=== PATIENT | male | born 1950 | race Caucasian/White ===

== ENCOUNTER 2022-09-20 13:01 | Inpatient (IN) ==
--- NOTE | 2022-09-20 15:06 | DR.UPM ---
HPI Time Seen Time Seen by Provider: 09/20/22 15:05 PCP Primary Care Physician: Walter Ferreira HPI Comment HPI Comment: Patient is 71yr old male in er with fever, body aches, headache and nausea times 3 days. on treatment for Uti for 3 days. not getting better. Denies dysuria or vomiting. PCP wants patient evaluated for covid 19 infection. Patient is said to have AMS. Complaint Chief Complaint Doctors Comments: Fever, body aches, headaches and nausea times 3 days. On medication for UTI. Chief Complaint:: Pt states that thursday09/17/22 he was given an abx for a Uti but since then pt has had nausea, headache, fever, all over body aches. Pt states that Pili at Dr. Ferreria's office told him that he might have covid and that he needed to come to the ER Self Treatment fo Chief Complaint: prescribed abx COVID-19 Coronavirus risk:travel/contact w/high risk person: No Has patient experienced Coronavirus symptoms: Yes Coronavirus symptoms experienced: Fever Reviewed Nurses Notes Reviewed: Yes Source History Provided: Patient and Significant Other Mode of Arrival Mode of Arrival: Ambulatory Timing Onset of Chief Complaint: 09/17/22 PMH PMH Past Medical History: Yes Past Medical History: Diabetes, Gout, Hypertension and Hypothyroidism Past Medical History Comment: history of diverticulitis history of hernia only has 1 kidney Past Surgical History: Yes Family History History of Family Medical Conditions: Yes Family Medical History: Hypertension Social History Does any household member use tobacco: No Alcohol Use: None Do you use any recreational Drugs:: No Lives With: Spouse Lives Where: Home Travel Risk Coronavirus risk:travel/contact w/high risk person: No Has patient experienced Coronavirus symptoms: Yes Coronavirus symptoms experienced: Fever Infectious screening In the last 2 months have you had wt loss of >10#?: NO Have you had fever, night sweats or hemotysis?: No Have you traveled outside the country in the last 6 months?: No Isolation: Respiratory ROS Review of Systems Constitutional: Fever, Weakness and Fatigue Eyes: No Symptoms Reported; negative Blurred Vision ENTM: No Symptoms Reported; negative Nose Discharge or Nose Congestion Respiratoy: No Symptoms Reported; negative Short of Breath Cardiovascular: No Symptoms Reported; negative Chest Pain Gastrointestinal/Abdominal: Nausea; negative Diarrhea or Vomiting Genitourinary: No Symptoms Reported; negative Dysuria Neurological: Headache and Weakness; negative Dizziness Musculoskeletal: Muscle Pain; negative Back Pain Integumentary: No Symptoms Reported; negative Rash or Juandice Hematologic/Lymphatic: No Symptoms Reported and Easy Bruising Endocrine: No Symptoms Reported; negative Increased Thirst or Increased Urine Psychiatric: No Symptoms Reported and See HPI All Other Systems: Reviewed and Negative PE Vital Signs Vitals: Vital Signs Respiratory Rate 20 Respiratory Rate 20 Respiratory Rate 19 General Limitations: No Limitations General Appearance: Alert and In No Apparent Distress Head Head Exam: Normal Inspection and Atraumatic Eyes Eye exam: Normal Appearance and PERRL; negative Scleral Icterus or Conjunctival Injection ENT ENT Exam: Normal Exam, Normal Oropharynx, Normal External Ear Exam and TM's Normal Bilaterally Neck Neck Exam: Normal Inspection and Trachea Midline; negative Tenderness Chest Chest Inspection: Normal Inspection and Symmetric Chest Wall Rise; negative Tenderness Respiratory Respiratory Exam: Normal Lung Sounds Bilat; negative Accessory Muscle Use, Chest Wall Tenderness or Respiratory Distress Cardiovascular Cardiovascular Exam: Regular Rate, Normal Rhythm and Normal Heart Sounds; negative Systolic Murmur or Diastolic Murmur Abdominal Exam Abdominal Exam: Normal Inspection, Normal Bowel Sounds and Soft; negative Tenderness Rectal Rectal Exam: Deferred Genitourinary Exam: Male: Deferred Extremities Extremities Exam: Normal Inspection and Normal Capillary Refill Back Back Exam: Normal Inspection; negative (R) CVA Tenderness or (L) CVA Tenderness Neurologic Neurological Exam: Alert; negative Oriented X3 (SLIGHTLY CONFUSED.) or Motor Sensory Deficit Psychiatric Psychiatric Exam: Normal Affect and Normal Mood Skin Skin Exam: Intact MDM Differential Diagnosis Differential Diagnosis: Urolithiasis, UTI and Other (Viral syndrome, covid 19 virus infection, influenza.) COURSE Treatment Treatment: See orders done while patient was in er. labs discussed with patient. Admitted to hospital for further management. Consultation Consultation Comments: Discussed patient with Dr. Pradhan. he is in er evaluating patient. he will admit patient. Education/Counseling Education/Counseling: Patient Educated On: Diagnosis and Needs for Follow Up ROR Labs Reviewed Laboratory Results Reviewed?: Yes 09/26/22 05:16 09/26/22 05:16 Laboratory: 09/20/22 15:55 Urine,Clean Catch Urine Culture - Final Escherichia Coli WBC 5.7 X10^3/uL (3.6-10.0) 09/20/22 15:25 RBC 4.72 X10^6/uL (4.7-6.0) 09/20/22 15:25 Hgb 13.8 g/dL (13.5-18.0) 09/20/22 15:25 Hct 41.4 % (42.0-54.0) L 09/20/22 15:25 MCV 87.7 fL (80.0-100.0) 09/20/22 15:25 MCH 29.3 pg (27.0-34.0) 09/20/22 15:25 MCHC 33.4 g/dL (33.0-35.0) 09/20/22 15:25 RDW 13.9 % (11.6-16.5) 09/20/22 15:25 Plt Count 158 X10^3/uL (150.0-450.0) 09/20/22 15:25 Plt Count Comment Adequate (ADEQUATE) 09/20/22 15:25 MPV 8.9 fL (7.4-11.0) 09/20/22 15:25 Neut % (Auto) 92.4 % (42.0-75.0) H 09/20/22 15:25 Lymph % (Auto) 2.1 % (21.0-51.0) L 09/20/22 15:25 [place] % (Auto) 4.6 % (0.0-13.0) 09/20/22 15:25 Eos % (Auto) 0.3 % (0.9-2.9) L 09/20/22 15:25 Baso % (Auto) 0.6 % (0.2-1.0) 09/20/22 15:25 Neut # (Auto) 5.2 x10^3/uL (2.2-4.8) H 09/20/22 15:25 Lymph # (Auto) 0.1 X10^3/uL (1.3-2.9) L 09/20/22 15:25 [place] # (Auto) 0.3 x10^3/uL (0.3-0.8) 09/20/22 15:25 Eos # (Auto) 0.0 x10^3/uL (0.0-0.2) 09/20/22 15:25 Baso # (Auto) 0.0 X10^3/uL (0.0-0.1) 09/20/22 15:25 Absolute Nucleated RBC 0.2 /100WBC 09/20/22 15:25 Total Counted 100 09/20/22 15:25 Neutrophils % (Manual) 93 % (39-76) H 09/20/22 15:25 Lymphocytes % (Manual) 3 % (13-43) L 09/20/22 15:25 Monocytes % (Manual) 4 % (4-9) 09/20/22 15:25 Plt Morphology Comment Normal (NORMAL) 09/20/22 15:25 RBC Morphology Normal (NORMAL) 09/20/22 15:25 Sodium 136 mmol/L (136-145) 09/20/22 15:25 Corrected Sodium 137 mmol/L (136-145) 09/20/22 15:25 Potassium 3.3 mmol/L (3.5-5.1) L 09/20/22 15:25 Chloride 98 mmol/L (98-107) 09/20/22 15:25 Carbon Dioxide 32.1 mmol/L (21-32) H 09/20/22 15:25 BUN 15 mg/dL (7-18) 09/20/22 15:25 Creatinine 1.41 mg/dL (0.70-1.30) H 09/20/22 15:25 Est GFR (MDRD) Af Amer > 60 (>60) 09/20/22 15:25 Est GFR (MDRD) Non-Af 53 (>60) L 09/20/22 15:25 Glucose 136 mg/dL (65-99) H 09/20/22 15:25 Calcium 8.2 mg/dL (8.5-10.1) L 09/20/22 15:25 Corrected Calcium 9.0 mg/dL (8.5-10.1) 09/20/22 15:25 Magnesium 1.7 mg/dL (2.0-2.9) L 09/20/22 15:25 Total Bilirubin 0.40 mg/dL (0.2-1.0) 09/20/22 15:25 AST 25 Units/L (15-37) 09/20/22 15:25 ALT 22 Units/L (12-78) 09/20/22 15:25 Alkaline Phosphatase 51 Units/L (46-116) 09/20/22 15:25 Creatine Kinase 349 Units/L (39-308) H 09/20/22 15:25 Troponin I High Sens 31.0 ng/L (4.0-60.0) 09/20/22 15:25 B-Natriuretic Peptide 95.2 pg/mL (0-79) H 09/20/22 15:25 Total Protein 6.5 g/dL (6.4-8.2) 09/20/22 15:25 Albumin 3.0 g/dL (3.4-5.0) L 09/20/22 15:25 Globulin 3.5 g/dL (2.5-4.5) 09/20/22 15:25 Albumin/Globulin Ratio 0.9 Ratio (1.1-2.1) L 09/20/22 15:25 Specimen Type Clean catch urine 09/20/22 15:55 Urine Color Yellow (YELLOW) 09/20/22 15:55 Urine Appearance Cloudy (CLEAR) 09/20/22 15:55 Urine pH 6.0 (5.0 - 8.0) 09/20/22 15:55 Ur Specific [place] 1.020 (1.000-1.030) 09/20/22 15:55 Urine Protein 2+ (NEGATIVE) 09/20/22 15:55 Urine Glucose (UA) Negative (NEGATIVE) 09/20/22 15:55 Urine Ketones Negative (NEGATIVE) 09/20/22 15:55 Urine Blood 5+ (NEGATIVE) 09/20/22 15:55 Urine Nitrite Negative (NEGATIVE) 09/20/22 15:55 Urine Bilirubin Negative (NEGATIVE) 09/20/22 15:55 Urine Urobilinogen 1+ (NORMAL) 09/20/22 15:55 Ur Leukocyte Esterase 2+ (NEGATIVE) 09/20/22 15:55 Urine RBC Tntc /HPF (0-3) A 09/20/22 15:55 Urine WBC 30-50 /HPF (0-5) A 09/20/22 15:55 Ur Squamous Epith Cells Rare /HPF (NEGATIVE) 09/20/22 15:55 Urine Bacteria Trace /HPF (NEGATIVE) 09/20/22 15:55 Ur Culture Indicated? Yes/culture set up 09/20/22 15:55 SARS-CoV-2 (PCR) Negative (NEGATIVE) 09/20/22 21:13 Influenza Type A (PCR) Negative (NEGATIVE) 09/20/22 21:13 Influenza Type B (PCR) Negative (NEGATIVE) 09/20/22 21:13 RSV (PCR) Negative (NEGATIVE) 09/20/22 21:13 Opioid Opioid Risk Tool Age (Derrick box if 16-45): No Total: 0 Total Score Risk Category: Low Risk Copyright: [facility] predicting aberrant behaviors Discharge Plan Diagnosis Discharge Problem: Acute pyelonephritis, Dehydration, Generalized weakness Discharge Plan Patient Disposition: 01 HOME, SELF-CARE Condition: Stable
[2022-09-20] MEDS ORDERED: MORPHINE SULFATE INJ 2 MG INJ IVP ONE ×2 (15:24→19:25)
[2022-09-20] MEDS ORDERED: ZOFRAN INJ 4 MG VIAL ONE (15:30)
[2022-09-20] MEDS ORDERED: MORPHINE SULFATE INJ 2 MG INJ ONE ×2 (15:30→19:32)
[2022-09-20] MEDS ORDERED: NS 1,000 ML IV 1,000 ML ONE ×2 (15:30→21:04)
[2022-09-20] MEDS ORDERED: PEPCID 20 MG VIAL ONE (15:31)
[2022-09-20] MEDS: PEPCID 20 MG VIAL 20 MG in NS 50 ML IV 50 ML IV ONE ×2 (15:33→15:40)
[2022-09-20] MEDS: NS 1,000 ML IV 1,000 ML IV SCH ×2 (15:33→21:15)
[2022-09-20] MEDS: ZOFRAN INJ 4 MG VIAL IVP ONE ×2 (15:33→15:39)
[2022-09-20 15:38] LABS: BASOPHILS % (AUTO) 0.6 % (0.2-1.0); EOSINOPHILS % (AUTO) 0.3 % (0.9-2.9); HEMATOCRIT 41.4 % (42.0-54.0); HEMOGLOBIN 13.8 g/dL (13.5-18.0); LYMPHOCYTES # (AUTO) 0.1 X10^3/uL (1.3-2.9); LYMPHOCYTES % (AUTO) 2.1 % (21.0-51.0); MEAN CORPUSCULAR HEMOGLOBIN 29.3 pg (27.0-34.0); MEAN CORPUSCULAR HGB CONC 33.4 g/dL (33.0-35.0); MEAN CORPUSCULAR VOLUME 87.7 fL (80.0-100.0); MEAN PLATELET VOLUME 8.9 fL (7.4-11.0); MONOCYTES # (AUTO) 0.3 x10^3/uL (0.3-0.8); MONOCYTES % (AUTO) 4.6 % (0.0-13.0); NEUTROPHILS # (AUTO) 5.2 x10^3/uL (2.2-4.8); NEUTROPHILS % (AUTO) 92.4 % (42.0-75.0); PLATELET COUNT 158 X10^3/uL (150.0-450.0); RED BLOOD COUNT 4.72 X10^6/uL (4.7-6.0); RED CELL DISTRIBUTION WIDTH 13.9 % (11.6-16.5); WHITE BLOOD COUNT 5.7 X10^3/uL (3.6-10.0)
[2022-09-20 15:52] LABS: ALANINE AMINOTRANSFERASE 22 Units/L (12-78); ALKALINE PHOSPHATASE 51 Units/L (46-116); ASPARTATE AMINO TRANSFERASE 25 Units/L (15-37); BLOOD UREA NITROGEN 15 mg/dL (7-18); CALCIUM 8.2 mg/dL (8.5-10.1); CARBON DIOXIDE 32.1 mmol/L (21-32); CHLORIDE 98 mmol/L (98-107); COR NA(FOR HYPERGLY) 137 mmol/L (136-145); CREATINE KINASE 349 Units/L (39-308); CREATININE 1.41 mg/dL (0.70-1.30); GLUCOSE 136 mg/dL (65-99); POTASSIUM 3.3 mmol/L (3.5-5.1); SODIUM 136 mmol/L (136-145); TOTAL PROTEIN 6.5 g/dL (6.4-8.2); eGFR NON BLACK RACES 53 (>60)
[2022-09-20 16:01] LABS: PLATELET MORPHOLOGY COMMENT NORMAL (NORMAL)
[2022-09-20 16:27] LABS: BILIRUBIN,URINE NEGATIVE (NEGATIVE); BLOOD/HEMOGLOBIN,URINE 5+ (NEGATIVE); GLUCOSE, URINE NEGATIVE (NEGATIVE); KETONES,URINE NEGATIVE (NEGATIVE); LEUKOCYTE ESTERASE ,URINE 2+ (NEGATIVE); NITRITES,URINE NEGATIVE (NEGATIVE); PROTEIN,URINE 2+ (NEGATIVE); UROBILINOGEN,URINE 1+ (NORMAL)
[2022-09-20 16:41] LABS: APPEARANCE,URINE CLOUDY (CLEAR); BACTERIA,URINE TRACE /HPF (NEGATIVE); COLOR,URINE YELLOW (YELLOW); RBC,URINE TNTC /HPF (0-3); SQUAMOUS EPITHELIAL CELL,UR RARE /HPF (NEGATIVE)
--- NOTE | 2022-09-20 16:51 | CT ---
HISTORYhematuria, fever, chills, possible stone.brpt states he only has one kidneyRenal colic and flank pain. Concern for renal stone.Exam: Non-contrast CT examination of the abdomen & pelvis.Technique: Multiple CT images of the abdomen and pelvis were obtained from the lung bases to the pubic symphysis without the IV administration of contrast. Of note, this CT exam was optimized for renal stone disease and some parenchymal organ abnormalities and vascular abnormalities/injuries cannot be excluded on the basis of this CT exam.Findings:The lung bases are clear. The heart is normal in size without a pericardial effusion. The liver, gallbladder, pancreas, spleen, adrenal glands, and gallbladder are unremarkable in appearance. There is diffuse left-sided perinephric stranding observed with mild left-sided hydroureter which can be seen with a recently passed renal stone or urinary tract infection/pyelonephritis. Please correlate medically and with urinalysis, as this is not definitive on this noncontrast study. No free fluid or free air is seen. There is descending colonic diverticulosis without findings of acute diverticulitis. The bladder and remaining pelvic organs are unremarkable appearance. No other acute abdominopelvic process is seen. Degenerative disc disease and facet joint DJD is seen throughout the lumbar spine with grade 1 anterolisthesis of L4 on L5 secondary to bilateral pars defects at this level with a broad-based posterior disc protrusion which combines with facet joint DJD to create severe foraminal narrowing and probable neural compression at this level. Multilevel degenerative disc disease and spondylosis as well as facet joint DJD seen throughout the remainder of the spine as well.Impression:Diffuse left-sided perinephric stranding observed with mild left-sided hydroureter which can be seen with a recently passed renal stone or urinary tract infection/pyelonephritis. Please correlate medically and with urinalysis, as this is not definitive on this noncontrast study.No free fluid or free air is seen. There is descending colonic diverticulosis without findings of acute diverticulitis.Degenerative disc disease and facet joint DJD is seen throughout the lumbar spine with grade 1 anterolisthesis of L4 on L5 secondary to bilateral pars defects at this level with a broad-based posterior disc protrusion which combines with facet joint DJD to create severe foraminal narrowing and probable neural compression at this level. Multilevel degenerative disc disease and spondylosis as well as facet joint DJD seen throughout the remainder of the spine as well. This might be best followed up with outpatient lumbar spine MR imaging, as medically needed.Electronically signed by: MOY LLAMAS III (Sep 20, 2022 16:49:20)
[2022-09-20] MEDS ORDERED: ROCEPHIN VIAL 1 GRAM 1 G in NS 100 ML IV 100 ML IV ONE (17:50)
[2022-09-20] MEDS ORDERED: ROCEPHIN VIAL 2 GRAMS ONE (17:57)
[2022-09-20] MEDS ORDERED: AMPICILLIN VIAL 1 GRAM 1 G in NS 100 ML IV 100 ML IV ONE (21:10)
[2022-09-20] MEDS ORDERED: TYLENOL 325 MG TAB PO ONE ×2 (21:17→21:40)
[2022-09-20] MEDS ORDERED: AMPICILLIN VIAL 1 GRAM ONE (21:20)
[2022-09-20] MEDS ORDERED: NS 100 ML IV 100 ML ONE (21:20)
--- NOTE | 2022-09-20 21:42 | CT ---
HISTORYINTERMITTENT HEADACHE FOR 3 DAYSSTUDYBRAIN W/O CONCOMPARISONNoneTECHNIQUEMult iple axial images of the head without contrast. Dose reduction techniques including Automated Exposure Control (AEC) and adjustment of mA and kV were utilized.FINDINGSBulky, calcified atherosclerotic calcifications in the posterior circulation and the carotid siphons. Benign dural calcifications. No hemorrhage or extra-axial collection. Microvascular ischemic changes in the bilateral white matter. Right maxillary sinus polyp versus mucous retention cysts. Scattered opacities in the ethmoid air cells. No skull lesion.IMPRESSIONChronic brain findings.Paranasal sinusitis.Electronically signed by: Kenneth Rivas (Sep 20, 2022 21:41:18)
[2022-09-20] MEDS ORDERED: CONSULT PHARMACY - POTASSIUM & MAGNESIUM XX SCH (23:00)
[2022-09-20] MEDS: K-DUR TAB 20 MEQ PO SCH (23:12)
[2022-09-20] MEDS: MAG-OX TAB PO SCH (23:13)
[2022-09-20 23:32] VITALS: BMI 37.4
[2022-09-21] MEDS: NS 1,000 ML IV 1,000 ML IV SCH ×2 (00:01→08:47)
[2022-09-21] MEDS: MAG-OX TAB PO SCH ×3 (00:15→20:35)
[2022-09-21] MEDS: K-DUR TAB 20 MEQ PO SCH (00:15)
[2022-09-21] MEDS: NORCO 5/325 MG TAB PO PRN ×4 (02:35→22:06)
[2022-09-21] MEDS ORDERED: CONSULT PHARMACY - POTASSIUM & MAGNESIUM XX SCH (08:00)
[2022-09-21] MEDS: NS + KCL 20 MEQ/L 1,000 ML IV SCH ×2 (09:40→18:17)
[2022-09-21 10:04] LABS: BASOPHILS % (AUTO) 0.7 % (0.2-1.0); HEMATOCRIT 39.9 % (42.0-54.0); HEMOGLOBIN 13.4 g/dL (13.5-18.0); LYMPHOCYTES # (AUTO) 0.2 X10^3/uL (1.3-2.9); LYMPHOCYTES % (AUTO) 5.7 % (21.0-51.0); MEAN CORPUSCULAR HEMOGLOBIN 29.7 pg (27.0-34.0); MEAN CORPUSCULAR HGB CONC 33.7 g/dL (33.0-35.0); MONOCYTES # (AUTO) 0.6 x10^3/uL (0.3-0.8); MONOCYTES % (AUTO) 14.9 % (0.0-13.0); NEUTROPHILS % (AUTO) 77.7 % (42.0-75.0); PLATELET COUNT 144 X10^3/uL (150.0-450.0); RED BLOOD COUNT 4.53 X10^6/uL (4.7-6.0); RED CELL DISTRIBUTION WIDTH 14.1 % (11.6-16.5); WHITE BLOOD COUNT 3.9 X10^3/uL (3.6-10.0)
[2022-09-21 10:15] LABS: ALANINE AMINOTRANSFERASE 22 Units/L (12-78); ALBUMIN 2.5 g/dL (3.4-5.0); ALKALINE PHOSPHATASE 49 Units/L (46-116); ASPARTATE AMINO TRANSFERASE 34 Units/L (15-37); BLOOD UREA NITROGEN 11 mg/dL (7-18); CALCIUM 7.6 mg/dL (8.5-10.1); CHLORIDE 102 mmol/L (98-107); COR CA(FOR HYPOALB) 8.8 mg/dL (8.5-10.1); COR NA(FOR HYPERGLY) 139 mmol/L (136-145); CREATININE 1.21 mg/dL (0.70-1.30); GLUCOSE 140 mg/dL (65-99); MAGNESIUM 1.7 mg/dL (2.0-2.9); POTASSIUM 3.6 mmol/L (3.5-5.1); SODIUM 138 mmol/L (136-145); TOTAL PROTEIN 5.8 g/dL (6.4-8.2); eGFR NON BLACK RACES > 60 (>60)
[2022-09-21 10:40] LABS: PLATELET MORPHOLOGY COMMENT NORMAL (NORMAL)
[2022-09-21] MEDS ORDERED: AMPICILLIN VIAL 1 GRAM ONE (13:58)
[2022-09-21] MEDS ORDERED: ROCEPHIN VIAL 1 GRAM ONE (13:58)
[2022-09-21] MEDS ORDERED: NS 100 ML IV 200 ML ONE (13:59)
[2022-09-21] MEDS ORDERED: NS 100 ML IV 100 ML ONE (14:01)
[2022-09-21] MEDS: ROCEPHIN VIAL 1 GRAM 1 G in NS 100 ML IV 100 ML IV SCH (14:05)
[2022-09-21] MEDS: AMPICILLIN VIAL 1 GRAM 1 G in NS 100 ML IV 100 ML IV SCH ×3 (14:05→20:36)
[2022-09-21] MEDS: RHINOCORT ALLERGY NASAL SPRAY ENOSTRIL SCH (14:48)
[2022-09-21] MEDS: REQUIP PO SCH ×2 (14:48→20:34)
[2022-09-21] MEDS: LOPRESSOR TAB 50 MG PO SCH (22:06)
[2022-09-21] MEDS: ZESTRIL TAB 10 MG PO SCH (22:06)
[2022-09-21] MEDS: NYSTATIN OINT TOP SCH (22:11)
[2022-09-22] MEDS: NS + KCL 20 MEQ/L 1,000 ML IV SCH ×3 (01:50→23:57)
[2022-09-22] MEDS: NORCO 5/325 MG TAB PO PRN ×4 (03:28→22:23)
[2022-09-22] MEDS: AMPICILLIN VIAL 1 GRAM 1 G in NS 100 ML IV 100 ML IV SCH ×5 (03:29→20:51)
[2022-09-22 06:26] LABS: ALANINE AMINOTRANSFERASE 37 Units/L (12-78); ALBUMIN 2.7 g/dL (3.4-5.0); ALKALINE PHOSPHATASE 54 Units/L (46-116); ASPARTATE AMINO TRANSFERASE 45 Units/L (15-37); BLOOD UREA NITROGEN 11 mg/dL (7-18); CALCIUM 7.8 mg/dL (8.5-10.1); CARBON DIOXIDE 25.7 mmol/L (21-32); CHLORIDE 103 mmol/L (98-107); COR CA(FOR HYPOALB) 8.8 mg/dL (8.5-10.1); CREATININE 0.97 mg/dL (0.70-1.30); GLUCOSE 102 mg/dL (65-99); SODIUM 138 mmol/L (136-145); eGFR NON BLACK RACES > 60 (>60)
[2022-09-22 06:44] LABS: BASOPHILS % (AUTO) 0.9 % (0.2-1.0); EOSINOPHILS # (AUTO) 0.1 x10^3/uL (0.0-0.2); EOSINOPHILS % (AUTO) 3.6 % (0.9-2.9); HEMOGLOBIN 12.9 g/dL (13.5-18.0); LYMPHOCYTES # (AUTO) 0.8 X10^3/uL (1.3-2.9); LYMPHOCYTES % (AUTO) 19.1 % (21.0-51.0); MEAN CORPUSCULAR HEMOGLOBIN 29.6 pg (27.0-34.0); MEAN CORPUSCULAR HGB CONC 33.9 g/dL (33.0-35.0); MEAN CORPUSCULAR VOLUME 87.3 fL (80.0-100.0); MEAN PLATELET VOLUME 9.3 fL (7.4-11.0); MONOCYTES # (AUTO) 0.7 x10^3/uL (0.3-0.8); MONOCYTES % (AUTO) 16.9 % (0.0-13.0); NEUTROPHILS # (AUTO) 2.4 x10^3/uL (2.2-4.8); NEUTROPHILS % (AUTO) 59.5 % (42.0-75.0); PLATELET COUNT 151 X10^3/uL (150.0-450.0); RED BLOOD COUNT 4.36 X10^6/uL (4.7-6.0); RED CELL DISTRIBUTION WIDTH 14.1 % (11.6-16.5); WHITE BLOOD COUNT 4.1 X10^3/uL (3.6-10.0)
[2022-09-22 07:09] LABS: BAND NEUTROPHILS % 15 % (0-10); PLATELET MORPHOLOGY COMMENT NORMAL (NORMAL)
[2022-09-22] MEDS: MAG-OX TAB PO SCH ×2 (09:12→20:51)
[2022-09-22] MEDS: REQUIP PO SCH ×2 (09:12→20:52)
[2022-09-22] MEDS: LOPRESSOR TAB 50 MG PO SCH ×2 (09:13→20:52)
[2022-09-22] MEDS: ZESTRIL TAB 10 MG PO SCH (09:13)
[2022-09-22] MEDS: ROCEPHIN VIAL 1 GRAM 1 G in NS 100 ML IV 100 ML IV SCH (09:13)
[2022-09-22] MEDS: NYSTATIN OINT TOP SCH ×2 (09:14→20:52)
[2022-09-22] MEDS: RHINOCORT ALLERGY NASAL SPRAY ENOSTRIL SCH (09:14)
--- NOTE | 2022-09-22 12:11 | MRI ---
HISTORYradicular pain, abnormal ctSTUDYMRI L SPINE W/O CONTRASTCOMPARISONCT abdomen and pelvis 09/20/2022TECHNIQUEMultiplanar multi-sequence MR images of the lumbar spine were obtained without contrast.FINDINGSThere is unchanged grade 1 anterolisthesis of L4 on L5, with bilateral chronic L4 pars defects again noted. The spine alignment is otherwise normal. There is type 1 Modic endplate change at L2-3. There is no evidence for acute fracture or suspicious marrow signal. The conus terminates at L1. The cauda equina is grossly unremarkable aside from nerve root crowding at L2-3 from canal stenosis. The pre and paravertebral soft tissues are unremarkable.T12-L1: Mild broad-based disc bulge and bilateral facet arthropathy, causing mild bilateral foraminal narrowing and mild canal narrowing.L1-2: Moderate broad-based disc bulge and bilateral facet arthropathy, resulting in [id number] bilateral foraminal narrowing and moderate canal narrowing.L2-3: Large broad-based disc bulge with moderate to severe bilateral facet arthropathy, resulting in moderate left and [id number] right foraminal narrowing, severe canal narrowing.L3-4: Mild broad-based disc bulge and moderate facet arthropathy, causing [id number] bilateral foraminal narrowing and mild canal narrowing.L4-5: There is grade 1 anterolisthesis of L4 with large broad-based disc bulge, rsch-[id number] facet arthropathy. There is severe bilateral neural foraminal narrowing, with effacement/flattening of the exiting nerve roots, although worse on the left.L5-S1: Mild facet arthropathy causing mild bilateral foraminal narrowing, without canal narrowing.IMPRESSIONMultilevel lumbar spine degenerative disease with chronic bilateral L4 pars defects and grade 1 spondylolisthesis of L4.Of note, there is severe canal narrowing at L2-3 and severe bilateral foraminal narrowing at L4-5.Electronically signed by: KATHERIN REDDING (Sep 22, 2022 12:10:43)
[2022-09-22] MEDS ORDERED: CATAPRES TAB 0.1 MG PO ONE (13:47)
--- NOTE | 2022-09-22 14:03 | EKG ---
Test Reason : HTN PROTOCOL Blood Pressure : */* mmHG Vent. Rate : 73 BPM Atrial Rate : 73 BPM P-R Int : 124 ms QRS Dur : 90 ms QT Int : 416 ms P-R-T Axes : 52 47 60 degrees QTc Int : 458 ms Normal sinus rhythm Normal ECG No previous ECGs available Confirmed by John Pruett ([id number]) on 09/24/2022 12:37:24 PM Referred By: Confirmed By: John Pruett
[2022-09-22] MEDS ORDERED: APRESOLINE INJ 20 MG VIAL IVP ONE (15:16)
[2022-09-23] MEDS: AMPICILLIN VIAL 1 GRAM 1 G in NS 100 ML IV 100 ML IV SCH ×2 (03:04→09:50)
[2022-09-23] MEDS: NORCO 5/325 MG TAB PO PRN (06:18)
[2022-09-23] MEDS: NS + KCL 20 MEQ/L 1,000 ML IV SCH ×3 (06:19→18:14)
[2022-09-23 06:30] LABS: BASOPHILS % (AUTO) 0.7 % (0.2-1.0); EOSINOPHILS # (AUTO) 0.2 x10^3/uL (0.0-0.2); EOSINOPHILS % (AUTO) 3.8 % (0.9-2.9); HEMATOCRIT 39.6 % (42.0-54.0); HEMOGLOBIN 13.4 g/dL (13.5-18.0); LYMPHOCYTES # (AUTO) 1.2 X10^3/uL (1.3-2.9); MEAN CORPUSCULAR HEMOGLOBIN 29.3 pg (27.0-34.0); MEAN CORPUSCULAR HGB CONC 33.9 g/dL (33.0-35.0); MEAN CORPUSCULAR VOLUME 86.5 fL (80.0-100.0); MEAN PLATELET VOLUME 9.2 fL (7.4-11.0); MONOCYTES # (AUTO) 0.8 x10^3/uL (0.3-0.8); MONOCYTES % (AUTO) 13.2 % (0.0-13.0); NEUTROPHILS % (AUTO) 63.3 % (42.0-75.0); PLATELET COUNT 177 X10^3/uL (150.0-450.0); RED BLOOD COUNT 4.58 X10^6/uL (4.7-6.0); RED CELL DISTRIBUTION WIDTH 14.2 % (11.6-16.5); WHITE BLOOD COUNT 6.3 X10^3/uL (3.6-10.0)
[2022-09-23 06:48] LABS: ALANINE AMINOTRANSFERASE 39 Units/L (12-78); ALBUMIN 2.8 g/dL (3.4-5.0); ALKALINE PHOSPHATASE 55 Units/L (46-116); ASPARTATE AMINO TRANSFERASE 43 Units/L (15-37); BLOOD UREA NITROGEN 8 mg/dL (7-18); CALCIUM 8.1 mg/dL (8.5-10.1); CARBON DIOXIDE 24.3 mmol/L (21-32); CHLORIDE 101 mmol/L (98-107); COR CA(FOR HYPOALB) 9.1 mg/dL (8.5-10.1); CREATININE 0.88 mg/dL (0.70-1.30); GLUCOSE 95 mg/dL (65-99); MAGNESIUM 1.8 mg/dL (2.0-2.9); POTASSIUM 3.9 mmol/L (3.5-5.1); SODIUM 135 mmol/L (136-145); TOTAL PROTEIN 6.3 g/dL (6.4-8.2); eGFR NON BLACK RACES > 60 (>60)
[2022-09-23] MEDS: LOPRESSOR TAB 50 MG PO SCH ×2 (08:44→20:28)
[2022-09-23] MEDS: REQUIP PO SCH ×2 (08:45→20:30)
[2022-09-23] MEDS: ZESTRIL TAB 10 MG PO SCH (08:45)
[2022-09-23] MEDS: MAG-OX TAB PO SCH ×2 (08:48→20:29)
[2022-09-23] MEDS: NYSTATIN OINT TOP SCH ×2 (08:48→20:48)
[2022-09-23] MEDS: ROCEPHIN VIAL 1 GRAM 1 G in NS 100 ML IV 100 ML IV SCH (08:48)
[2022-09-23] MEDS: RHINOCORT ALLERGY NASAL SPRAY ENOSTRIL SCH (08:49)
[2022-09-23] MEDS: CELEXA PO SCH (09:49)
[2022-09-23] MEDS: SYNTHROID 100 mcg TAB PO SCH (09:49)
[2022-09-23] MEDS: ZANAFLEX PO SCH ×2 (09:49→20:28)
--- NOTE | 2022-09-23 12:45 | PCM.PROG ---
Progress Note - Progress Note for Day of Date of Exam: 09/23/22 - Subjective Subjective: IS A 71 YEAR OLD PATIENT OF OURS. HE HAS A PMH OF DM II, GOUT, HTN, HYPOTHYROIDISM, BPH, HYPERLIPIDEMIA. HE IS CURRENTLY INPATIENT STATUS FOR TREATMENT OF ACUTE PYELONEPHRITIS FAILED OUTPATIENT TREATMENT AND SEVERE LOW BACK PAIN. HE WAS ADMITTED TO THE HOSPITAL ON 09/20/22. CT OF THE ABDOMEN AND PELVIS CONFIRMED PYELONEPHRITIS. TODAY, HE IS ALERT AND ORIENTED, SITTING ON THE SIDE OF THE BED ON MORNING ROUNDS. HE COMPLAINS OF GENERALIZED BODY ACHES AND WEAKNESS THIS MORNING. HE CONTINUES TO HAVE LOW BACK AND LOWER EXTREMITY PAIN, BUT REPORTS THAT IT HAS SLIGHTLY IMPROVED SINCE YESTERDAY. ON EXAMINATION, HEART IS REGULAR IN RATE AND RHYTHM. BILATERAL LUNGS ARE NOTED WITH DIMINISHED LUNG SOUNDS THROUGHOUT. ABDOMEN IS ROUND, SOFT, AND NON-TENDER WITH NORMAL BOWEL SOUNDS NOTED IN ALL QUADRANTS. TENDERNESS TO THE LUMBAR SPINE NOTED. GOOD MOVEMENT NOTED TO UPPER AND LOWER EXTREMITIES WITH NO EDEMA. HIS VITALS THIS MORNING ARE: 98.0-88-18-96%-188/96. LABS WERE OBTAINED. WBC 6.3, RBC 4.58, HGB 13.4, HCT 39.6, PLT COUNT 177, SODIUM 135, POTASSIUM 3.9, CHLORIDE 101, CARBON DIOXIDE 24.3, BUN 8, CREATININE 0.88, GLUCOSE 95, CALCIUM 8.1, MAGNESIUM 1.8, AST 43, ALT 39, ALK PHOS 55, TOTAL PROTEIN 6.3, ALBUMIN 2.8. URINE CULTURE WAS POSITIVE FOR GROWTH OF E.COLI. A LUMBAR SPINE MRI WITHOUT CONTRAST WAS OBTAINED YESTERDAY AND REVEALED: Multilevel lumbar spine degenerative disease with chronic bilateral L4 pars defects and grade 1 spondylolisthesis of L4. Of note, there is severe canal narrowing at L2-3 and severe bilateral foraminal narrowing at L4-5. HE IS CURRENTLY RECEIVING NORMAL SALINE WITH 20MEQ KCL AT 125 ML/HR, ROCEPHIN 1G IV DAILY, AMPICILLIN 1G IV Q6H, OTBS ACHS, RHINOCORT DAILY, CELEXA 20MG DAILY, NORCO 5/325MG Q6H PRN, SYNTHROID 200MCG DAILY, ZESTRIL 10MG DAILY, YUDITH OX 400MG BID, LOPRESSOR 50MG BID, NYSTATIN OINTMENT BID, REQUIP 1MG BID, ZOCOR 40MG HS, HYTRIN 5MG HS, ZANAFLEX 4MG BID, AND ULTRAM 50MG Q4H PRN. WE WILL DISCONTINUE THE AMPICILLIN TODAY. OTHERWISE, WE WILL CONTINUE WITH CURRENT PLAN OF CARE. OTHERWISE, WE WILL FOLLOW UP WITH AM LABS AND CONTINUE TO MONITOR. TIME SPENT ON CLINICAL ASSESSMENT, REVIEWING LABS AND IMAGING, DECISION MAKING, AND DOCUMENTATION GREATER THAN 45 MINUTES. - Past Medical Family Social History Past Med/Fam/Surg Hx: No changes since H&P Allergies: Allergies Sulfa (Sulfonamide Antibiotics) [SULFA] Allergy (Verified 09/20/22 13:19) - Review of Systems ROS: No change since H&P - Vital Signs and I&O's Vital Signs: Vital Signs Temperature 98.0 F Pulse Rate [Right Brachial] 88 Respiratory Rate 18 Respiratory Rate 20 Respiratory Rate 16 Blood Pressure [Right Arm] 188/96 O2 Sat by Pulse Oximetry 96 Intake and Output: Intake & Output 09/21/22 09/22/22 09/23/22 09/24/22 11:59 11:59 11:59 11:59 Intake Total 213 / 7 3919 / 3919 3681 / 3681 Output Total 3375 / 3375 2400 / 2400 Balance 213 / 2136 544 / 544 1281 / 1281 - Physical Exam Oriented: Normal Eyes: Normal Ear: Normal Nose: Normal Throat: Normal Respiratory: Normal Cardiovascular: Normal : Normal Auscultation: Bowel Sounds: Normal Palpation: Normal Tenderness: Suprapubic, Mild Skin: Normal Musculoskeletal: Right, Left, Leg, Back:Lumbar, Tender Psychiatric: Normal Mood Description: Calm Affect: Normal Speech Pattern: Clear, Appropriate - Laboratory and Diagnostics Result Diagrams: 09/23/22 05:30 09/23/22 05:30 Labs: 09/20/22 15:55 Urine,Clean Catch Urine Culture - Final Escherichia Coli Laboratory WBC 6.3 X10^3/uL (3.6-10.0) 09/23/22 05:30 RBC 4.58 X10^6/uL (4.7-6.0) L 09/23/22 05:30 Hgb 13.4 g/dL (13.5-18.0) L 09/23/22 05:30 Hct 39.6 % (42.0-54.0) L 09/23/22 05:30 MCV 86.5 fL (80.0-100.0) 09/23/22 05:30 MCH 29.3 pg (27.0-34.0) 09/23/22 05:30 MCHC 33.9 g/dL (33.0-35.0) 09/23/22 05:30 RDW 14.2 % (11.6-16.5) 09/23/22 05:30 Plt Count 177 X10^3/uL (150.0-450.0) 09/23/22 05:30 Plt Count Comment Adequate (ADEQUATE) 09/22/22 05:30 MPV 9.2 fL (7.4-11.0) 09/23/22 05:30 Neut % (Auto) 63.3 % (42.0-75.0) 09/23/22 05:30 Lymph % (Auto) 19.0 % (21.0-51.0) L 09/23/22 05:30 [place] % (Auto) 13.2 % (0.0-13.0) H 09/23/22 05:30 Eos % (Auto) 3.8 % (0.9-2.9) H 09/23/22 05:30 Baso % (Auto) 0.7 % (0.2-1.0) 09/23/22 05:30 Neut # (Auto) 4.0 x10^3/uL (2.2-4.8) 09/23/22 05:30 Lymph # (Auto) 1.2 X10^3/uL (1.3-2.9) L 09/23/22 05:30 [place] # (Auto) 0.8 x10^3/uL (0.3-0.8) 09/23/22 05:30 Eos # (Auto) 0.2 x10^3/uL (0.0-0.2) 09/23/22 05:30 Baso # (Auto) 0.0 X10^3/uL (0.0-0.1) 09/23/22 05:30 Absolute Nucleated RBC 0.1 /100WBC 09/23/22 05:30 Total Counted 100 09/22/22 05:30 Neutrophils % (Manual) 45 % (39-76) 09/22/22 05:30 Band Neutrophils % 15 % (0-10) H 09/22/22 05:30 Lymphocytes % (Manual) 21 % (13-43) 09/22/22 05:30 Monocytes % (Manual) 15 % (4-9) H 09/22/22 05:30 Eosinophils % (Manual) 4 % (0-6) 09/22/22 05:30 Plt Morphology Comment Normal (NORMAL) 09/22/22 05:30 RBC Morphology Normal (NORMAL) 09/22/22 05:30 Sodium 135 mmol/L (136-145) L 09/23/22 05:30 Corrected Sodium TNP 09/23/22 05:30 Potassium 3.9 mmol/L (3.5-5.1) 09/23/22 05:30 Chloride 101 mmol/L (98-107) 09/23/22 05:30 Carbon Dioxide 24.3 mmol/L (21-32) 09/23/22 05:30 BUN 8 mg/dL (7-18) 09/23/22 05:30 Creatinine 0.88 mg/dL (0.70-1.30) 09/23/22 05:30 Est GFR (MDRD) Af Amer > 60 (>60) 09/23/22 05:30 Est GFR (MDRD) Non-Af > 60 (>60) 09/23/22 05:30 Glucose 95 mg/dL (65-99) 09/23/22 05:30 POC Glucose (mg/dL) 98 mg/dL (65-99) 09/23/22 12:24 Calcium 8.1 mg/dL (8.5-10.1) L 09/23/22 05:30 Corrected Calcium 9.1 mg/dL (8.5-10.1) 09/23/22 05:30 Magnesium 1.8 mg/dL (2.0-2.9) L 09/23/22 05:30 Total Bilirubin 0.30 mg/dL (0.2-1.0) 09/23/22 05:30 AST 43 Units/L (15-37) H 09/23/22 05:30 ALT 39 Units/L (12-78) 09/23/22 05:30 Alkaline Phosphatase 55 Units/L (46-116) 09/23/22 05:30 Creatine Kinase 349 Units/L (39-308) H 09/20/22 15:25 Troponin I High Sens 31.0 ng/L (4.0-60.0) 09/20/22 15:25 B-Natriuretic Peptide 95.2 pg/mL (0-79) H 09/20/22 15:25 Total Protein 6.3 g/dL (6.4-8.2) L 09/23/22 05:30 Albumin 2.8 g/dL (3.4-5.0) L 09/23/22 05:30 Globulin 3.5 g/dL (2.5-4.5) 09/23/22 05:30 Albumin/Globulin Ratio 0.8 Ratio (1.1-2.1) L 09/23/22 05:30 Specimen Type Clean catch urine 09/20/22 15:55 Urine Color Yellow (YELLOW) 09/20/22 15:55 Urine Appearance Cloudy (CLEAR) 09/20/22 15:55 Urine pH 6.0 (5.0 - 8.0) 09/20/22 15:55 Ur Specific [place] 1.020 (1.000-1.030) 09/20/22 15:55 Urine Protein 2+ (NEGATIVE) 09/20/22 15:55 Urine Glucose (UA) Negative (NEGATIVE) 09/20/22 15:55 Urine Ketones Negative (NEGATIVE) 09/20/22 15:55 Urine Blood 5+ (NEGATIVE) 09/20/22 15:55 Urine Nitrite Negative (NEGATIVE) 09/20/22 15:55 Urine Bilirubin Negative (NEGATIVE) 09/20/22 15:55 Urine Urobilinogen 1+ (NORMAL) 09/20/22 15:55 Ur Leukocyte Esterase 2+ (NEGATIVE) 09/20/22 15:55 Urine RBC Tntc /HPF (0-3) A 09/20/22 15:55 Urine WBC 30-50 /HPF (0-5) A 09/20/22 15:55 Ur Squamous Epith Cells Rare /HPF (NEGATIVE) 09/20/22 15:55 Urine Bacteria Trace /HPF (NEGATIVE) 09/20/22 15:55 Ur Culture Indicated? Yes/culture set up 09/20/22 15:55 SARS-CoV-2 (PCR) Negative (NEGATIVE) 09/20/22 21:13 Influenza Type A (PCR) Negative (NEGATIVE) 09/20/22 21:13 Influenza Type B (PCR) Negative (NEGATIVE) 09/20/22 21:13 RSV (PCR) Negative (NEGATIVE) 09/20/22 21:13 - Plan (1) Acute pyelonephritis Status: Acute Plan: NORMAL SALINE WITH 20MEQ KCL AT 125 ML/HR, ROCEPHIN 1G IV DAILY (2) Lumbar degenerative disc disease Status: Acute Plan: CONTINUE NORCO, ZANAFLEX, ULTRAM (3) Hypomagnesemia Status: Acute Plan: MAG OX 400MG BID (4) RLS (restless legs syndrome) Status: Acute Plan: CONTINUE REQUIP (5) HTN (hypertension) Status: Chronic Qualifiers: Hypertension type: primary hypertension Qualified Code(s): I10 - Essential (primary) hypertension Plan: CONTINUE LOPRESSOR AND ZESTRIL (6) Hypothyroidism Status: Chronic Qualifiers: Hypothyroidism type: acquired Qualified Code(s): E03.9 - Hypothyroidism, unspecified Plan: CONTINUE SYNTHROID
[2022-09-23] MEDS: ULTRAM PO PRN ×2 (16:06→20:32)
[2022-09-23] MEDS: ZOCOR TAB 40 MG PO SCH (20:29)
[2022-09-23] MEDS: HYTRIN PO SCH (20:29)
[2022-09-24] MEDS: NS + KCL 20 MEQ/L 1,000 ML IV SCH ×3 (01:14→17:00)
[2022-09-24 06:30] LABS: BASOPHILS # (AUTO) 0.1 X10^3/uL (0.0-0.1); BASOPHILS % (AUTO) 0.8 % (0.2-1.0); EOSINOPHILS # (AUTO) 0.3 x10^3/uL (0.0-0.2); EOSINOPHILS % (AUTO) 3.6 % (0.9-2.9); HEMATOCRIT 37.4 % (42.0-54.0); HEMOGLOBIN 12.8 g/dL (13.5-18.0); LYMPHOCYTES # (AUTO) 1.8 X10^3/uL (1.3-2.9); LYMPHOCYTES % (AUTO) 25.6 % (21.0-51.0); MEAN CORPUSCULAR HEMOGLOBIN 29.3 pg (27.0-34.0); MEAN CORPUSCULAR HGB CONC 34.1 g/dL (33.0-35.0); MEAN CORPUSCULAR VOLUME 86.1 fL (80.0-100.0); MONOCYTES # (AUTO) 0.9 x10^3/uL (0.3-0.8); MONOCYTES % (AUTO) 12.6 % (0.0-13.0); NEUTROPHILS # (AUTO) 4.1 x10^3/uL (2.2-4.8); NEUTROPHILS % (AUTO) 57.4 % (42.0-75.0); PLATELET COUNT 186 X10^3/uL (150.0-450.0); RED BLOOD COUNT 4.35 X10^6/uL (4.7-6.0); RED CELL DISTRIBUTION WIDTH 14.2 % (11.6-16.5); WHITE BLOOD COUNT 7.2 X10^3/uL (3.6-10.0)
[2022-09-24 06:39] LABS: ALANINE AMINOTRANSFERASE 42 Units/L (12-78); ALBUMIN 2.6 g/dL (3.4-5.0); ALKALINE PHOSPHATASE 49 Units/L (46-116); ASPARTATE AMINO TRANSFERASE 43 Units/L (15-37); BLOOD UREA NITROGEN 9 mg/dL (7-18); CALCIUM 7.6 mg/dL (8.5-10.1); CARBON DIOXIDE 23.8 mmol/L (21-32); CHLORIDE 102 mmol/L (98-107); COR CA(FOR HYPOALB) 8.7 mg/dL (8.5-10.1); CREATININE 0.93 mg/dL (0.70-1.30); GLUCOSE 100 mg/dL (65-99); MAGNESIUM 1.8 mg/dL (2.0-2.9); SODIUM 135 mmol/L (136-145); TOTAL PROTEIN 5.8 g/dL (6.4-8.2); eGFR NON BLACK RACES > 60 (>60)
[2022-09-24] MEDS ORDERED: CONSULT PHARMACY - POTASSIUM & MAGNESIUM XX SCH (07:00)
[2022-09-24] MEDS: ZANAFLEX PO SCH ×2 (08:36→20:23)
[2022-09-24] MEDS: SYNTHROID 100 mcg TAB PO SCH (08:37)
[2022-09-24] MEDS: MAG-OX TAB PO SCH ×2 (08:37→20:23)
[2022-09-24] MEDS: REQUIP PO SCH ×2 (08:37→20:23)
[2022-09-24] MEDS: ROCEPHIN VIAL 1 GRAM 1 G in NS 100 ML IV 100 ML IV SCH (08:37)
[2022-09-24] MEDS: ZESTRIL TAB 10 MG PO SCH ×2 (08:37→20:24)
[2022-09-24] MEDS: LOPRESSOR TAB 50 MG PO SCH ×2 (08:37→20:23)
[2022-09-24] MEDS: NYSTATIN OINT TOP SCH ×2 (08:38→21:12)
[2022-09-24] MEDS: RHINOCORT ALLERGY NASAL SPRAY ENOSTRIL SCH (08:40)
[2022-09-24] MEDS: CELEXA PO SCH (08:40)
[2022-09-24] MEDS ORDERED: MAG-OX TAB PO SCH (10:00)
--- NOTE | 2022-09-24 12:14 | PCM.PROG ---
Progress Note - Progress Note for Day of Date of Exam: 09/24/22 - Subjective Subjective: IS A 71 YEAR OLD PATIENT OF OURS. HE HAS A PMH OF DM II, GOUT, HTN, HYPOTHYROIDISM, BPH, HYPERLIPIDEMIA. HE IS CURRENTLY INPATIENT STATUS FOR TREATMENT OF ACUTE PYELONEPHRITIS FAILED OUTPATIENT TREATMENT AND SEVERE LOW BACK PAIN. HE WAS ADMITTED TO THE HOSPITAL ON 09/20/22. CT OF THE ABDOMEN AND PELVIS CONFIRMED PYELONEPHRITIS. TODAY, HE IS ALERT AND ORIENTED, SITTING ON THE SIDE OF THE BED ON MORNING ROUNDS. HE COMPLAINS OF GENERALIZED BODY ACHES AND WEAKNESS THIS MORNING. HE ALSO CONTINUES TO HAVE LOW BACK AND LOWER EXTREMITY PAIN, BUT REPORTS THAT IT HAS SLIGHTLY IMPROVED SINCE YESTERDAY. ON EXAMINATION, HEART IS REGULAR IN RATE AND RHYTHM. BILATERAL LUNGS ARE NOTED WITH DIMINISHED LUNG SOUNDS THROUGHOUT. ABDOMEN IS ROUND, SOFT, AND NON-TENDER WITH NORMAL BOWEL SOUNDS NOTED IN ALL QUADRANTS. TENDERNESS TO THE LUMBAR SPINE NOTED. GOOD MOVEMENT NOTED TO UPPER AND LOWER EXTREMITIES WITH NO EDEMA. HIS VITALS THIS MORNING ARE: 97.8-71-18-93%-165/89. LABS WERE OBTAINED. WBC 7.2, RBC 4.35, HGB 12.8, HCT 37.4, PLT COUNT 186, SODIUM 135, POTASSIUM 4.0, CHLORIDE 102, BUN 9, CREATININE 0.93, GLUCOSE 100, CALCIUM 7.6, MAGNESIUM 1.8, AST 43, ALT 42, ALK PHOS 49, TOTAL PROTEIN 5.8, ALBUMIN 2.6. URINE CULTURE WAS POSITIVE FOR GROWTH OF E.COLI. A LUMBAR SPINE MRI WITHOUT CONTRAST WAS OBTAINED YESTERDAY AND REVEALED: Multilevel lumbar spine degenerative disease with chronic bilateral L4 pars defects and grade 1 spondylolisthesis of L4. Of note, there is severe canal narrowing at L2-3 and severe bilateral foraminal narrowing at L4-5. HE IS CURRENTLY RECEIVING NORMAL SALINE WITH 20MEQ KCL AT 125 ML/HR, ROCEPHIN 1G IV DAILY, OTBS ACHS, RHINOCORT DAILY, CELEXA 20MG DAILY, NORCO 5/325MG Q6H PRN, SYNTHROID 200MCG DAILY, ZESTRIL 10MG DAILY, MAG OX 400MG BID, LOPRESSOR 50MG BID, NYSTATIN OINTMENT BID, REQUIP 1MG BID, ZOCOR 40MG HS, HYTRIN 5MG HS, ZANAFLEX 4MG BID, AND ULTRAM 50MG Q4H PRN. TODAY, WE WILL INCREASE HIS LISINOPRIL TO BID. OTHERWISE, WE WILL FOLLOW UP WITH AM LABS AND CONTINUE TO MONITOR. TIME SPENT ON CLINICAL ASSESSMENT, REVIEWING LABS AND IMAGING, DECISION MAKING, AND DOCUMENTATION GREATER THAN 45 MINUTES. - Past Medical Family Social History Past Med/Fam/Surg Hx: No changes since H&P Allergies: Allergies Sulfa (Sulfonamide Antibiotics) [SULFA] Allergy (Verified 09/20/22 13:19) - Review of Systems ROS: No change since H&P - Vital Signs and I&O's Vital Signs: Vital Signs Temperature 97.8 F Pulse Rate [Right Brachial] 71 Respiratory Rate 18 Blood Pressure [Left Arm] 165/89 O2 Sat by Pulse Oximetry 93 Intake and Output: Intake & Output 09/22/22 09/23/22 09/24/22 09/25/22 11:59 11:59 11:59 11:59 Intake Total 3919 / 3919 3681 / 3681 4427 / 4427 Output Total 3375 / 3375 2400 / 2400 1900 / 1900 Balance 544 / 544 1281 / 1281 2527 / 2527 - Physical Exam Oriented: Normal Eyes: Normal Ear: Normal Nose: Normal Throat: Normal Respiratory: Normal Cardiovascular: Normal : Normal Auscultation: Bowel Sounds: Normal Palpation: Normal Tenderness: Suprapubic, Mild Skin: Normal Musculoskeletal: Right, Left, Leg, Back:Lumbar, Tender Psychiatric: Normal Mood Description: Calm Affect: Normal Speech Pattern: Clear, Appropriate - Laboratory and Diagnostics Result Diagrams: 09/24/22 05:27 09/24/22 05:27 Labs: 09/20/22 15:55 Urine,Clean Catch Urine Culture - Final Escherichia Coli Laboratory WBC 7.2 X10^3/uL (3.6-10.0) 09/24/22 05:27 RBC 4.35 X10^6/uL (4.7-6.0) L 09/24/22 05:27 Hgb 12.8 g/dL (13.5-18.0) L 09/24/22 05:27 Hct 37.4 % (42.0-54.0) L 09/24/22 05:27 MCV 86.1 fL (80.0-100.0) 09/24/22 05:27 MCH 29.3 pg (27.0-34.0) 09/24/22 05:27 MCHC 34.1 g/dL (33.0-35.0) 09/24/22 05:27 RDW 14.2 % (11.6-16.5) 09/24/22 05:27 Plt Count 186 X10^3/uL (150.0-450.0) 09/24/22 05:27 Plt Count Comment Adequate (ADEQUATE) 09/22/22 05:30 MPV 9.0 fL (7.4-11.0) 09/24/22 05:27 Neut % (Auto) 57.4 % (42.0-75.0) 09/24/22 05:27 Lymph % (Auto) 25.6 % (21.0-51.0) 09/24/22 05:27 [place] % (Auto) 12.6 % (0.0-13.0) 09/24/22 05:27 Eos % (Auto) 3.6 % (0.9-2.9) H 09/24/22 05:27 Baso % (Auto) 0.8 % (0.2-1.0) 09/24/22 05:27 Neut # (Auto) 4.1 x10^3/uL (2.2-4.8) 09/24/22 05:27 Lymph # (Auto) 1.8 X10^3/uL (1.3-2.9) 09/24/22 05:27 [place] # (Auto) 0.9 x10^3/uL (0.3-0.8) H 09/24/22 05:27 Eos # (Auto) 0.3 x10^3/uL (0.0-0.2) H 09/24/22 05:27 Baso # (Auto) 0.1 X10^3/uL (0.0-0.1) 09/24/22 05:27 Absolute Nucleated RBC 0.0 /100WBC 09/24/22 05:27 Total Counted 100 09/22/22 05:30 Neutrophils % (Manual) 45 % (39-76) 09/22/22 05:30 Band Neutrophils % 15 % (0-10) H 09/22/22 05:30 Lymphocytes % (Manual) 21 % (13-43) 09/22/22 05:30 Monocytes % (Manual) 15 % (4-9) H 09/22/22 05:30 Eosinophils % (Manual) 4 % (0-6) 09/22/22 05:30 Plt Morphology Comment Normal (NORMAL) 09/22/22 05:30 RBC Morphology Normal (NORMAL) 09/22/22 05:30 Sodium 135 mmol/L (136-145) L 09/24/22 05:27 Corrected Sodium TNP 09/24/22 05:27 Potassium 4.0 mmol/L (3.5-5.1) 09/24/22 05:27 Chloride 102 mmol/L (98-107) 09/24/22 05:27 Carbon Dioxide 23.8 mmol/L (21-32) 09/24/22 05:27 BUN 9 mg/dL (7-18) 09/24/22 05:27 Creatinine 0.93 mg/dL (0.70-1.30) 09/24/22 05:27 Est GFR (MDRD) Af Amer > 60 (>60) 09/24/22 05:27 Est GFR (MDRD) Non-Af > 60 (>60) 09/24/22 05:27 Glucose 100 mg/dL (65-99) H 09/24/22 05:27 POC Glucose (mg/dL) 97 mg/dL (65-99) 09/24/22 05:15 Calcium 7.6 mg/dL (8.5-10.1) L 09/24/22 05:27 Corrected Calcium 8.7 mg/dL (8.5-10.1) 09/24/22 05:27 Magnesium 1.8 mg/dL (2.0-2.9) L 09/24/22 05:27 Total Bilirubin 0.30 mg/dL (0.2-1.0) 09/24/22 05:27 AST 43 Units/L (15-37) H 09/24/22 05:27 ALT 42 Units/L (12-78) 09/24/22 05:27 Alkaline Phosphatase 49 Units/L (46-116) 09/24/22 05:27 Creatine Kinase 349 Units/L (39-308) H 09/20/22 15:25 Troponin I High Sens 31.0 ng/L (4.0-60.0) 09/20/22 15:25 B-Natriuretic Peptide 95.2 pg/mL (0-79) H 09/20/22 15:25 Total Protein 5.8 g/dL (6.4-8.2) L 09/24/22 05:27 Albumin 2.6 g/dL (3.4-5.0) L 09/24/22 05:27 Globulin 3.2 g/dL (2.5-4.5) 09/24/22 05:27 Albumin/Globulin Ratio 0.8 Ratio (1.1-2.1) L 09/24/22 05:27 Specimen Type Clean catch urine 09/20/22 15:55 Urine Color Yellow (YELLOW) 09/20/22 15:55 Urine Appearance Cloudy (CLEAR) 09/20/22 15:55 Urine pH 6.0 (5.0 - 8.0) 09/20/22 15:55 Ur Specific [place] 1.020 (1.000-1.030) 09/20/22 15:55 Urine Protein 2+ (NEGATIVE) 09/20/22 15:55 Urine Glucose (UA) Negative (NEGATIVE) 09/20/22 15:55 Urine Ketones Negative (NEGATIVE) 09/20/22 15:55 Urine Blood 5+ (NEGATIVE) 09/20/22 15:55 Urine Nitrite Negative (NEGATIVE) 09/20/22 15:55 Urine Bilirubin Negative (NEGATIVE) 09/20/22 15:55 Urine Urobilinogen 1+ (NORMAL) 09/20/22 15:55 Ur Leukocyte Esterase 2+ (NEGATIVE) 09/20/22 15:55 Urine RBC Tntc /HPF (0-3) A 09/20/22 15:55 Urine WBC 30-50 /HPF (0-5) A 09/20/22 15:55 Ur Squamous Epith Cells Rare /HPF (NEGATIVE) 09/20/22 15:55 Urine Bacteria Trace /HPF (NEGATIVE) 09/20/22 15:55 Ur Culture Indicated? Yes/culture set up 09/20/22 15:55 SARS-CoV-2 (PCR) Negative (NEGATIVE) 09/20/22 21:13 Influenza Type A (PCR) Negative (NEGATIVE) 09/20/22 21:13 Influenza Type B (PCR) Negative (NEGATIVE) 09/20/22 21:13 RSV (PCR) Negative (NEGATIVE) 09/20/22 21:13 - Plan (1) Acute pyelonephritis Status: Acute Plan: NORMAL SALINE WITH 20MEQ KCL AT 125 ML/HR, ROCEPHIN 1G IV DAILY (2) Lumbar degenerative disc disease Status: Acute Plan: CONTINUE NORCO, ZANAFLEX, ULTRAM (3) Hypomagnesemia Status: Acute Plan: MAG OX 400MG BID (4) RLS (restless legs syndrome) Status: Acute Plan: CONTINUE REQUIP (5) HTN (hypertension) Status: Chronic Qualifiers: Hypertension type: primary hypertension Qualified Code(s): I10 - Essential (primary) hypertension Plan: CONTINUE LOPRESSOR AND INCREASE ZESTRIL TO 10MG BID (6) Hypothyroidism Status: Chronic Qualifiers: Hypothyroidism type: acquired Qualified Code(s): E03.9 - Hypothyroidism, unspecified Plan: CONTINUE SYNTHROID
[2022-09-24] MEDS ORDERED: TYLENOL 325 MG TAB PO ONE (16:51)
[2022-09-24] MEDS: TYLENOL 325 MG TAB PO PRN (16:56)
[2022-09-24] MEDS: ZOCOR TAB 40 MG PO SCH (20:24)
[2022-09-24] MEDS: ULTRAM PO PRN (20:24)
[2022-09-24] MEDS: HYTRIN PO SCH (20:24)
[2022-09-25] MEDS: NS + KCL 20 MEQ/L 1,000 ML IV SCH ×3 (00:28→20:49)
[2022-09-25 06:12] LABS: BASOPHILS # (AUTO) 0.1 X10^3/uL (0.0-0.1); EOSINOPHILS # (AUTO) 0.2 x10^3/uL (0.0-0.2); EOSINOPHILS % (AUTO) 2.4 % (0.9-2.9); HEMATOCRIT 38.8 % (42.0-54.0); HEMOGLOBIN 13.1 g/dL (13.5-18.0); LYMPHOCYTES # (AUTO) 2.3 X10^3/uL (1.3-2.9); LYMPHOCYTES % (AUTO) 32.9 % (21.0-51.0); MEAN CORPUSCULAR HEMOGLOBIN 29.3 pg (27.0-34.0); MEAN CORPUSCULAR HGB CONC 33.7 g/dL (33.0-35.0); MEAN CORPUSCULAR VOLUME 86.9 fL (80.0-100.0); MEAN PLATELET VOLUME 9.3 fL (7.4-11.0); MONOCYTES # (AUTO) 0.7 x10^3/uL (0.3-0.8); MONOCYTES % (AUTO) 9.9 % (0.0-13.0); NEUTROPHILS # (AUTO) 3.7 x10^3/uL (2.2-4.8); NEUTROPHILS % (AUTO) 53.8 % (42.0-75.0); PLATELET COUNT 202 X10^3/uL (150.0-450.0); RED BLOOD COUNT 4.47 X10^6/uL (4.7-6.0); RED CELL DISTRIBUTION WIDTH 14.1 % (11.6-16.5)
[2022-09-25 06:26] LABS: ALANINE AMINOTRANSFERASE 53 Units/L (12-78); ALBUMIN 2.8 g/dL (3.4-5.0); ALKALINE PHOSPHATASE 51 Units/L (46-116); ASPARTATE AMINO TRANSFERASE 46 Units/L (15-37); BLOOD UREA NITROGEN 10 mg/dL (7-18); CARBON DIOXIDE 25.5 mmol/L (21-32); CHLORIDE 102 mmol/L (98-107); CREATININE 0.91 mg/dL (0.70-1.30); GLUCOSE 95 mg/dL (65-99); SODIUM 137 mmol/L (136-145); TOTAL PROTEIN 6.1 g/dL (6.4-8.2); eGFR NON BLACK RACES > 60 (>60)
[2022-09-25] MEDS ORDERED: CONSULT PHARMACY - POTASSIUM & MAGNESIUM XX SCH (08:00)
[2022-09-25] MEDS: ROCEPHIN VIAL 1 GRAM 1 G in NS 100 ML IV 100 ML IV SCH (08:51)
[2022-09-25] MEDS: LOPRESSOR TAB 50 MG PO SCH ×2 (08:51→20:50)
[2022-09-25] MEDS: ZANAFLEX PO SCH ×2 (08:51→20:50)
[2022-09-25] MEDS: REQUIP PO SCH ×2 (08:51→20:52)
[2022-09-25] MEDS: CELEXA PO SCH (08:51)
[2022-09-25] MEDS: ZESTRIL TAB 10 MG PO SCH ×2 (08:51→20:52)
[2022-09-25] MEDS: MAG-OX TAB PO SCH ×2 (08:52→21:36)
[2022-09-25] MEDS: TYLENOL 325 MG TAB PO PRN (08:52)
[2022-09-25] MEDS: SYNTHROID 100 mcg TAB PO SCH (08:53)
[2022-09-25] MEDS: NYSTATIN OINT TOP SCH ×2 (08:53→21:36)
[2022-09-25] MEDS: NORCO 5/325 MG TAB PO PRN ×2 (08:53→20:54)
[2022-09-25] MEDS: RHINOCORT ALLERGY NASAL SPRAY ENOSTRIL SCH (08:53)
[2022-09-25] MEDS ORDERED: ZESTRIL TAB 10 MG PO ONE (10:27)
[2022-09-25] MEDS: TORADOL 30 MG VIAL IVP SCH ×2 (11:53→19:04)
--- NOTE | 2022-09-25 13:00 | PCM.PROG ---
Progress Note - Progress Note for Day of Date of Exam: 09/25/22 - Subjective Subjective: IS A 71 YEAR OLD PATIENT OF OURS. HE HAS A PMH OF DM II, GOUT, HTN, HYPOTHYROIDISM, BPH, HYPERLIPIDEMIA. HE IS CURRENTLY INPATIENT STATUS FOR TREATMENT OF ACUTE PYELONEPHRITIS FAILED OUTPATIENT TREATMENT AND SEVERE LOW BACK PAIN. HE WAS ADMITTED TO THE HOSPITAL ON 09/20/22. CT OF THE ABDOMEN AND PELVIS CONFIRMED PYELONEPHRITIS. TODAY, HE IS ALERT AND ORIENTED, SITTING ON THE SIDE OF THE BED ON MORNING ROUNDS. HE COMPLAINS OF GENERALIZED BODY ACHES AND WEAKNESS THIS MORNING. HE REPORTS INCREASED LEFT SIDED LOW BACK PAIN THIS MORNING. NURSING STAFF REPORTS THAT HIS BLOOD PRESSURE ALSO CONTINUED TO BE ELEVATED THROUGHOUT THE NIGHT. ON EXAMINATION, HEART IS REGULAR IN RATE AND R HYTHM. BILATERAL LUNGS ARE NOTED WITH DIMINISHED LUNG SOUNDS THROUGHOUT. ABDOMEN IS ROUND, SOFT, AND NON-TENDER WITH NORMAL BOWEL SOUNDS NOTED IN ALL QUADRANTS. TENDERNESS TO THE LUMBAR SPINE NOTED. GOOD MOVEMENT NOTED TO UPPER AND LOWER EXTREMITIES WITH NO EDEMA. HIS VITALS THIS MORNING ARE: 98.0-69-20-94%-183/84. LABS WERE OBTAINED. WBC 7.0, RBC 4.47, HGB 13.1, HCT 38.8, PLT COUNT 202, SODIUM 137, POTASSIUM 4.0, CHLORIDE 102, CARBON DIOXIDIE 25.5, BUN 10, CREATININE 0.91, GLUCOSE 95, CALCIUM 8.0, MAGNESIUM 1.9, AST 46, ALT 53, ALK PHOS 51, TOTAL PROTEIN 6.1, ALBUMIN 2.8. URINE CULTURE WAS POSITIVE FOR GROWTH OF E.COLI. A LUMBAR SPINE MRI WITHOUT CONTRAST WAS OBTAINED YESTERDAY AND REVEALED: Multilevel lumbar spine degenerative disease with chronic bilateral L4 pars defects and grade 1 spondylolisthesis of L4. Of note, there is severe canal narrowing at L2-3 and severe bilateral foraminal narrowing at L4-5. HE IS CURRENTLY RECEIVING NORMAL SALINE WITH 20MEQ KCL AT 125 ML/HR, ROCEPHIN 1G IV DAILY, OTBS ACHS, RHINOCORT DAILY, CELEXA 20MG DAILY, NORCO 5/325MG Q6H PRN, SYNTHROID 200MCG DAILY, ZESTRIL 10MG DAILY, MAG OX 400MG BID, LOPRESSOR 50MG BID, NYSTATIN OINTMENT BID, REQUIP 1MG BID, ZOCOR 40MG HS, HYTRIN 5MG HS, ZANAFLEX 4MG BID, AND ULTRAM 50MG Q4H PRN. TODAY, WE WILL INCREASE HIS LISINOPRIL TO 20MG BID. WE WILL ADD TORADOL 30MG IV Q8H. OTHERWISE, WE WILL CONTINUE WITH CURRENT PLAN OF CARE. WE WILL FOLLOW UP WITH AM LABS AND CONTINUE TO MONITOR. TIME SPENT ON CLINICAL ASSESSMENT, REVIEWING LABS AND IMAGING, DECISION MAKING, AND DOCUMENTATION GREATER THAN 45 MINUTES. - Past Medical Family Social History Past Med/Fam/Surg Hx: No changes since H&P Allergies: Allergies Sulfa (Sulfonamide Antibiotics) [SULFA] Allergy (Verified 09/20/22 13:19) - Review of Systems ROS: No change since H&P - Vital Signs and I&O's Vital Signs: Vital Signs Temperature 97.7 F Temperature 98.0 F Pulse Rate [Right Brachial] 92 Pulse Rate [Right Brachial] 69 Respiratory Rate 15 Respiratory Rate 20 Respiratory Rate 15 Respiratory Rate 20 Respiratory Rate 20 Respiratory Rate 20 Respiratory Rate 20 Respiratory Rate 20 Blood Pressure [Left Arm] 142/78 Blood Pressure [Right Arm] 183/84 O2 Sat by Pulse Oximetry 94 O2 Sat by Pulse Oximetry 94 Intake and Output: Intake & Output 09/23/22 09/24/22 09/25/22 09/26/22 11:59 11:59 11:59 11:59 Intake Total 3681 / 3681 4427 / 4427 3940 / 3940 Output Total 2400 / 2400 1900 / 1900 4155 / 4155 Balance 1281 / 1281 2527 / 2527 -215 / -215 - Physical Exam Oriented: Normal Eyes: Normal Ear: Normal Nose: Normal Throat: Normal Respiratory: Normal Cardiovascular: Normal : Normal Auscultation: Bowel Sounds: Normal Palpation: Normal Tenderness: Suprapubic, Mild Skin: Normal Musculoskeletal: Right, Left, Leg, Back:Lumbar, Tender Psychiatric: Normal Mood Description: Calm Affect: Normal Speech Pattern: Clear, Appropriate - Laboratory and Diagnostics Result Diagrams: 09/25/22 05:25 09/25/22 05:25 Labs: 09/20/22 15:55 Urine,Clean Catch Urine Culture - Final Escherichia Coli Laboratory WBC 7.0 X10^3/uL (3.6-10.0) 09/25/22 05:25 RBC 4.47 X10^6/uL (4.7-6.0) L 09/25/22 05:25 Hgb 13.1 g/dL (13.5-18.0) L 09/25/22 05:25 Hct 38.8 % (42.0-54.0) L 09/25/22 05:25 MCV 86.9 fL (80.0-100.0) 09/25/22 05:25 MCH 29.3 pg (27.0-34.0) 09/25/22 05:25 MCHC 33.7 g/dL (33.0-35.0) 09/25/22 05:25 RDW 14.1 % (11.6-16.5) 09/25/22 05:25 Plt Count 202 X10^3/uL (150.0-450.0) 09/25/22 05:25 Plt Count Comment Adequate (ADEQUATE) 09/22/22 05:30 MPV 9.3 fL (7.4-11.0) 09/25/22 05:25 Neut % (Auto) 53.8 % (42.0-75.0) 09/25/22 05:25 Lymph % (Auto) 32.9 % (21.0-51.0) 09/25/22 05:25 [place] % (Auto) 9.9 % (0.0-13.0) 09/25/22 05:25 Eos % (Auto) 2.4 % (0.9-2.9) 09/25/22 05:25 Baso % (Auto) 1.0 % (0.2-1.0) 09/25/22 05:25 Neut # (Auto) 3.7 x10^3/uL (2.2-4.8) 09/25/22 05:25 Lymph # (Auto) 2.3 X10^3/uL (1.3-2.9) 09/25/22 05:25 [place] # (Auto) 0.7 x10^3/uL (0.3-0.8) 09/25/22 05:25 Eos # (Auto) 0.2 x10^3/uL (0.0-0.2) 09/25/22 05:25 Baso # (Auto) 0.1 X10^3/uL (0.0-0.1) 09/25/22 05:25 Absolute Nucleated RBC 0.1 /100WBC 09/25/22 05:25 Total Counted 100 09/22/22 05:30 Neutrophils % (Manual) 45 % (39-76) 09/22/22 05:30 Band Neutrophils % 15 % (0-10) H 09/22/22 05:30 Lymphocytes % (Manual) 21 % (13-43) 09/22/22 05:30 Monocytes % (Manual) 15 % (4-9) H 09/22/22 05:30 Eosinophils % (Manual) 4 % (0-6) 09/22/22 05:30 Plt Morphology Comment Normal (NORMAL) 09/22/22 05:30 RBC Morphology Normal (NORMAL) 09/22/22 05:30 Sodium 137 mmol/L (136-145) 09/25/22 05:25 Corrected Sodium TNP 09/25/22 05:25 Potassium 4.0 mmol/L (3.5-5.1) 09/25/22 05:25 Chloride 102 mmol/L (98-107) 09/25/22 05:25 Carbon Dioxide 25.5 mmol/L (21-32) 09/25/22 05:25 BUN 10 mg/dL (7-18) 09/25/22 05:25 Creatinine 0.91 mg/dL (0.70-1.30) 09/25/22 05:25 Est GFR (MDRD) Af Amer > 60 (>60) 09/25/22 05:25 Est GFR (MDRD) Non-Af > 60 (>60) 09/25/22 05:25 Glucose 95 mg/dL (65-99) 09/25/22 05:25 POC Glucose (mg/dL) 103 mg/dL (65-99) H 09/25/22 11:50 Calcium 8.0 mg/dL (8.5-10.1) L 09/25/22 05:25 Corrected Calcium 9.0 mg/dL (8.5-10.1) 09/25/22 05:25 Magnesium 1.9 mg/dL (2.0-2.9) L 09/25/22 05:25 Total Bilirubin 0.40 mg/dL (0.2-1.0) 09/25/22 05:25 AST 46 Units/L (15-37) H 09/25/22 05:25 ALT 53 Units/L (12-78) 09/25/22 05:25 Alkaline Phosphatase 51 Units/L (46-116) 09/25/22 05:25 Creatine Kinase 349 Units/L (39-308) H 09/20/22 15:25 Troponin I High Sens 31.0 ng/L (4.0-60.0) 09/20/22 15:25 B-Natriuretic Peptide 95.2 pg/mL (0-79) H 09/20/22 15:25 Total Protein 6.1 g/dL (6.4-8.2) L 09/25/22 05:25 Albumin 2.8 g/dL (3.4-5.0) L 09/25/22 05:25 Globulin 3.3 g/dL (2.5-4.5) 09/25/22 05:25 Albumin/Globulin Ratio 0.8 Ratio (1.1-2.1) L 09/25/22 05:25 Specimen Type Clean catch urine 09/20/22 15:55 Urine Color Yellow (YELLOW) 09/20/22 15:55 Urine Appearance Cloudy (CLEAR) 09/20/22 15:55 Urine pH 6.0 (5.0 - 8.0) 09/20/22 15:55 Ur Specific [place] 1.020 (1.000-1.030) 09/20/22 15:55 Urine Protein 2+ (NEGATIVE) 09/20/22 15:55 Urine Glucose (UA) Negative (NEGATIVE) 09/20/22 15:55 Urine Ketones Negative (NEGATIVE) 09/20/22 15:55 Urine Blood 5+ (NEGATIVE) 09/20/22 15:55 Urine Nitrite Negative (NEGATIVE) 09/20/22 15:55 Urine Bilirubin Negative (NEGATIVE) 09/20/22 15:55 Urine Urobilinogen 1+ (NORMAL) 09/20/22 15:55 Ur Leukocyte Esterase 2+ (NEGATIVE) 09/20/22 15:55 Urine RBC Tntc /HPF (0-3) A 09/20/22 15:55 Urine WBC 30-50 /HPF (0-5) A 09/20/22 15:55 Ur Squamous Epith Cells Rare /HPF (NEGATIVE) 09/20/22 15:55 Urine Bacteria Trace /HPF (NEGATIVE) 09/20/22 15:55 Ur Culture Indicated? Yes/culture set up 09/20/22 15:55 SARS-CoV-2 (PCR) Negative (NEGATIVE) 09/20/22 21:13 Influenza Type A (PCR) Negative (NEGATIVE) 09/20/22 21:13 Influenza Type B (PCR) Negative (NEGATIVE) 09/20/22 21:13 RSV (PCR) Negative (NEGATIVE) 09/20/22 21:13 - Plan (1) Acute pyelonephritis Status: Acute Plan: NORMAL SALINE WITH 20MEQ KCL AT 125 ML/HR, ROCEPHIN 1G IV DAILY, TORADOL 30MG IV Q8H (2) Lumbar degenerative disc disease Status: Acute Plan: CONTINUE NORCO, ZANAFLEX, ULTRAM (3) Hypomagnesemia Status: Acute Plan: MAG OX 400MG BID (4) RLS (restless legs syndrome) Status: Acute Plan: CONTINUE REQUIP (5) HTN (hypertension) Status: Chronic Qualifiers: Hypertension type: primary hypertension Qualified Code(s): I10 - Essential (primary) hypertension Plan: CONTINUE LOPRESSOR AND INCREASE ZESTRIL TO 20MG BID (6) Hypothyroidism Status: Chronic Qualifiers: Hypothyroidism type: acquired Qualified Code(s): E03.9 - Hypothyroidism, unspecified Plan: CONTINUE SYNTHROID
[2022-09-25] MEDS: ZOCOR TAB 40 MG PO SCH (20:52)
[2022-09-25] MEDS: HYTRIN PO SCH (20:52)
[2022-09-26] MEDS: NS + KCL 20 MEQ/L 1,000 ML IV SCH ×2 (01:20→11:50)
[2022-09-26] MEDS: TORADOL 30 MG VIAL IVP SCH ×2 (02:01→11:50)
[2022-09-26 06:11] LABS: BASOPHILS # (AUTO) 0.1 X10^3/uL (0.0-0.1); BASOPHILS % (AUTO) 1.1 % (0.2-1.0); EOSINOPHILS # (AUTO) 0.1 x10^3/uL (0.0-0.2); EOSINOPHILS % (AUTO) 1.9 % (0.9-2.9); HEMATOCRIT 37.3 % (42.0-54.0); HEMOGLOBIN 12.5 g/dL (13.5-18.0); LYMPHOCYTES # (AUTO) 2.5 X10^3/uL (1.3-2.9); LYMPHOCYTES % (AUTO) 36.1 % (21.0-51.0); MEAN CORPUSCULAR HEMOGLOBIN 29.1 pg (27.0-34.0); MEAN CORPUSCULAR HGB CONC 33.4 g/dL (33.0-35.0); MEAN CORPUSCULAR VOLUME 87.2 fL (80.0-100.0); MEAN PLATELET VOLUME 9.2 fL (7.4-11.0); MONOCYTES # (AUTO) 0.6 x10^3/uL (0.3-0.8); MONOCYTES % (AUTO) 9.4 % (0.0-13.0); NEUTROPHILS # (AUTO) 3.5 x10^3/uL (2.2-4.8); NEUTROPHILS % (AUTO) 51.5 % (42.0-75.0); PLATELET COUNT 223 X10^3/uL (150.0-450.0); RED BLOOD COUNT 4.28 X10^6/uL (4.7-6.0); RED CELL DISTRIBUTION WIDTH 14.2 % (11.6-16.5); WHITE BLOOD COUNT 6.8 X10^3/uL (3.6-10.0)
[2022-09-26 06:34] LABS: ALANINE AMINOTRANSFERASE 53 Units/L (12-78); ALBUMIN 2.7 g/dL (3.4-5.0); ALKALINE PHOSPHATASE 51 Units/L (46-116); ASPARTATE AMINO TRANSFERASE 41 Units/L (15-37); BLOOD UREA NITROGEN 11 mg/dL (7-18); CALCIUM 7.9 mg/dL (8.5-10.1); CARBON DIOXIDE 26.2 mmol/L (21-32); CHLORIDE 102 mmol/L (98-107); COR CA(FOR HYPOALB) 8.9 mg/dL (8.5-10.1); CREATININE 0.98 mg/dL (0.70-1.30); GLUCOSE 105 mg/dL (65-99); SODIUM 136 mmol/L (136-145); TOTAL PROTEIN 5.9 g/dL (6.4-8.2); eGFR NON BLACK RACES > 60 (>60)
[2022-09-26] MEDS: ROCEPHIN VIAL 1 GRAM 1 G in NS 100 ML IV 100 ML IV SCH (08:51)
[2022-09-26] MEDS: CELEXA PO SCH (08:52)
[2022-09-26] MEDS: REQUIP PO SCH (08:52)
[2022-09-26] MEDS: SYNTHROID 100 mcg TAB PO SCH (08:52)
[2022-09-26] MEDS: ZESTRIL TAB 10 MG PO SCH (08:52)
[2022-09-26] MEDS: MAG-OX TAB PO SCH (08:52)
[2022-09-26] MEDS: ZANAFLEX PO SCH (08:52)
[2022-09-26] MEDS: LOPRESSOR TAB 50 MG PO SCH (08:52)
[2022-09-26] MEDS: NYSTATIN OINT TOP SCH (08:54)
[2022-09-26] MEDS: RHINOCORT ALLERGY NASAL SPRAY ENOSTRIL SCH (08:54)
--- NOTE | 2022-09-26 11:37 | PCM.PROG ---
Progress Note - Progress Note for Day of Date of Exam: 09/26/22 - Subjective Subjective: IS A 71 YEAR OLD PATIENT OF OURS. HE HAS A PMH OF DM II, GOUT, HTN, HYPOTHYROIDISM, BPH, HYPERLIPIDEMIA. HE IS CURRENTLY INPATIENT STATUS FOR TREATMENT OF ACUTE PYELONEPHRITIS FAILED OUTPATIENT TREATMENT AND SEVERE LOW BACK PAIN. HE WAS ADMITTED TO THE HOSPITAL ON 09/20/22. CT OF THE ABDOMEN AND PELVIS CONFIRMED PYELONEPHRITIS. TODAY, HE IS ALERT AND ORIENTED, LYING IN BED ON MORNING ROUNDS. HE COMPLAINS OF GENERALIZED BODY ACHES AND WEAKNESS THIS MORNING. HE REPORTS PERSISTENT, BUT IMPROVING LOW BACK PAIN THIS MORNING. ON EXAMINATION, HEART IS REGULAR IN RATE AND RHYTHM. BILATERAL LUNGS ARE NOTED WITH DIMINISHED LUNG SOUNDS THROUGHOUT. ABDOMEN IS ROUND, SOFT, AND NON-TENDER WITH NORMAL BOWEL SOUNDS NOTED IN ALL QUADRANTS. TENDERNESS TO THE LUMBAR SPINE NOTED. GOOD MOVEMENT NOTED TO UPPER AND LOWER EXTREMITIES WITH NO EDEMA. HIS VITALS THIS MORNING ARE: 97.9-72-20-95%-186/91. LABS WERE OBTAINED. WBC 6.8, RBC 4.28, HGB 12.5, HCT 37.3, SODIUM 136, POTASSIUM 4.0, CHLORIDE 102, CARBON DIOXIDE 26.2, BUN 11, CREATININE 0.98, GLUCOSE 105, CALCIUM 7.9, MAGNESIUM 1.9, AST 41, ALT 53, ALK PHOS 51, TOTAL PROTEIN 5.9, ALBUMIN 2.7. URINE CULTURE WAS POSITIVE FOR GROWTH OF E.COLI. HE IS CURRENTLY RECEIVING NORMAL SALINE WITH 20MEQ KCL AT 125 ML/HR, ROCEPHIN 1G IV DAILY, TORADOL 30MG IV Q8H, OTBS ACHS, RHINOCORT DAILY, CELEXA 20MG DAILY, NORCO 5/325MG Q6H PRN, SYNTHROID 200MCG DAILY, ZESTRIL 20MG DAILY, MAG OX 400MG BID, LOPRESSOR 50MG BID, NYSTATIN OINTMENT BID, REQUIP 1MG BID, ZOCOR 40MG HS, HYTRIN 5MG HS, ZANAFLEX 4MG BID, AND ULTRAM 50MG Q4H PRN. WE WILL REPEAT AN ABDOMEN/PELVIS CT WITHOUT CONTRAST TODAY. OTHERWISE, WE WILL CONTINUE WITH CURRENT PLAN OF CARE. WE WILL FOLLOW UP WITH AM LABS AND CONTINUE TO MONITOR. TIME SPENT ON CLINICAL ASSESSMENT, REVIEWING LABS AND IMAGING, DECISION MAKING, AND DOCUMENTATION GREATER THAN 45 MINUTES. - Past Medical Family Social History Past Med/Fam/Surg Hx: No changes since H&P Allergies: Allergies Sulfa (Sulfonamide Antibiotics) [SULFA] Allergy (Verified 09/20/22 13:19) - Review of Systems ROS: No change since H&P - Vital Signs and I&O's Vital Signs: Vital Signs Temperature 97.9 F Temperature 98.9 F Pulse Rate [Right Brachial] 72 Pulse Rate [Right Brachial] 66 Respiratory Rate 20 Respiratory Rate 20 Blood Pressure [Left Arm] 186/91 Blood Pressure [Left Arm] 159/80 O2 Sat by Pulse Oximetry 95 O2 Sat by Pulse Oximetry 96 Intake and Output: Intake & Output 09/23/22 09/24/22 09/25/22 09/26/22 11:59 11:59 11:59 11:59 Intake Total 3681 / 3681 4427 / 4427 3940 / 3940 4322 / 4322 Output Total 2400 / 2400 1900 / 1900 4155 / 4155 3500 / 3500 Balance 1281 / 1281 2527 / 2527 -215 / -215 822 / 822 - Physical Exam Oriented: Normal Eyes: Normal Ear: Normal Nose: Normal Throat: Normal Respiratory: Normal Cardiovascular: Normal : Normal Auscultation: Bowel Sounds: Normal Palpation: Normal Tenderness: Suprapubic, Mild Skin: Normal Musculoskeletal: Right, Left, Leg, Back:Lumbar, Tender Psychiatric: Normal Mood Description: Calm Affect: Normal Speech Pattern: Clear, Appropriate - Laboratory and Diagnostics Result Diagrams: 09/26/22 05:16 09/26/22 05:16 Labs: 09/20/22 15:55 Urine,Clean Catch Urine Culture - Final Escherichia Coli Laboratory WBC 6.8 X10^3/uL (3.6-10.0) 09/26/22 05:16 RBC 4.28 X10^6/uL (4.7-6.0) L 09/26/22 05:16 Hgb 12.5 g/dL (13.5-18.0) L 09/26/22 05:16 Hct 37.3 % (42.0-54.0) L 09/26/22 05:16 MCV 87.2 fL (80.0-100.0) 09/26/22 05:16 MCH 29.1 pg (27.0-34.0) 09/26/22 05:16 MCHC 33.4 g/dL (33.0-35.0) 09/26/22 05:16 RDW 14.2 % (11.6-16.5) 09/26/22 05:16 Plt Count 223 X10^3/uL (150.0-450.0) 09/26/22 05:16 Plt Count Comment Adequate (ADEQUATE) 09/22/22 05:30 MPV 9.2 fL (7.4-11.0) 09/26/22 05:16 Neut % (Auto) 51.5 % (42.0-75.0) 09/26/22 05:16 Lymph % (Auto) 36.1 % (21.0-51.0) 09/26/22 05:16 Bledsoe % (Auto) 9.4 % (0.0-13.0) 09/26/22 05:16 Eos % (Auto) 1.9 % (0.9-2.9) 09/26/22 05:16 Baso % (Auto) 1.1 % (0.2-1.0) H 09/26/22 05:16 Neut # (Auto) 3.5 x10^3/uL (2.2-4.8) 09/26/22 05:16 Lymph # (Auto) 2.5 X10^3/uL (1.3-2.9) 09/26/22 05:16 Bledsoe # (Auto) 0.6 x10^3/uL (0.3-0.8) 09/26/22 05:16 Eos # (Auto) 0.1 x10^3/uL (0.0-0.2) 09/26/22 05:16 Baso # (Auto) 0.1 X10^3/uL (0.0-0.1) 09/26/22 05:16 Absolute Nucleated RBC 0.0 /100WBC 09/26/22 05:16 Total Counted 100 09/22/22 05:30 Neutrophils % (Manual) 45 % (39-76) 09/22/22 05:30 Band Neutrophils % 15 % (0-10) H 09/22/22 05:30 Lymphocytes % (Manual) 21 % (13-43) 09/22/22 05:30 Monocytes % (Manual) 15 % (4-9) H 09/22/22 05:30 Eosinophils % (Manual) 4 % (0-6) 09/22/22 05:30 Plt Morphology Comment Normal (NORMAL) 09/22/22 05:30 RBC Morphology Normal (NORMAL) 09/22/22 05:30 Sodium 136 mmol/L (136-145) 09/26/22 05:16 Corrected Sodium TNP 09/26/22 05:16 Potassium 4.0 mmol/L (3.5-5.1) 09/26/22 05:16 Chloride 102 mmol/L (98-107) 09/26/22 05:16 Carbon Dioxide 26.2 mmol/L (21-32) 09/26/22 05:16 BUN 11 mg/dL (7-18) 09/26/22 05:16 Creatinine 0.98 mg/dL (0.70-1.30) 09/26/22 05:16 Est GFR (MDRD) Af Amer > 60 (>60) 09/26/22 05:16 Est GFR (MDRD) Non-Af > 60 (>60) 09/26/22 05:16 Glucose 105 mg/dL (65-99) H 09/26/22 05:16 POC Glucose (mg/dL) 115 mg/dL (65-99) H 09/26/22 05:10 Calcium 7.9 mg/dL (8.5-10.1) L 09/26/22 05:16 Corrected Calcium 8.9 mg/dL (8.5-10.1) 09/26/22 05:16 Magnesium 1.9 mg/dL (2.0-2.9) L 09/26/22 05:16 Total Bilirubin 0.30 mg/dL (0.2-1.0) 09/26/22 05:16 AST 41 Units/L (15-37) H 09/26/22 05:16 ALT 53 Units/L (12-78) 09/26/22 05:16 Alkaline Phosphatase 51 Units/L (46-116) 09/26/22 05:16 Creatine Kinase 349 Units/L (39-308) H 09/20/22 15:25 Troponin I High Sens 31.0 ng/L (4.0-60.0) 09/20/22 15:25 B-Natriuretic Peptide 95.2 pg/mL (0-79) H 09/20/22 15:25 Total Protein 5.9 g/dL (6.4-8.2) L 09/26/22 05:16 Albumin 2.7 g/dL (3.4-5.0) L 09/26/22 05:16 Globulin 3.2 g/dL (2.5-4.5) 09/26/22 05:16 Albumin/Globulin Ratio 0.8 Ratio (1.1-2.1) L 09/26/22 05:16 Specimen Type Clean catch urine 09/20/22 15:55 Urine Color Yellow (YELLOW) 09/20/22 15:55 Urine Appearance Cloudy (CLEAR) 09/20/22 15:55 Urine pH 6.0 (5.0 - 8.0) 09/20/22 15:55 Ur Specific Clio 1.020 (1.000-1.030) 09/20/22 15:55 Urine Protein 2+ (NEGATIVE) 09/20/22 15:55 Urine Glucose (UA) Negative (NEGATIVE) 09/20/22 15:55 Urine Ketones Negative (NEGATIVE) 09/20/22 15:55 Urine Blood 5+ (NEGATIVE) 09/20/22 15:55 Urine Nitrite Negative (NEGATIVE) 09/20/22 15:55 Urine Bilirubin Negative (NEGATIVE) 09/20/22 15:55 Urine Urobilinogen 1+ (NORMAL) 09/20/22 15:55 Ur Leukocyte Esterase 2+ (NEGATIVE) 09/20/22 15:55 Urine RBC Tntc /HPF (0-3) A 09/20/22 15:55 Urine WBC 30-50 /HPF (0-5) A 09/20/22 15:55 Ur Squamous Epith Cells Rare /HPF (NEGATIVE) 09/20/22 15:55 Urine Bacteria Trace /HPF (NEGATIVE) 09/20/22 15:55 Ur Culture Indicated? Yes/culture set up 09/20/22 15:55 SARS-CoV-2 (PCR) Negative (NEGATIVE) 09/20/22 21:13 Influenza Type A (PCR) Negative (NEGATIVE) 09/20/22 21:13 Influenza Type B (PCR) Negative (NEGATIVE) 09/20/22 21:13 RSV (PCR) Negative (NEGATIVE) 09/20/22 21:13 - Plan (1) Acute pyelonephritis Status: Acute Plan: NORMAL SALINE WITH 20MEQ KCL AT 125 ML/HR, ROCEPHIN 1G IV DAILY, TORADOL 30MG IV Q8H (2) Lumbar degenerative disc disease Status: Acute Plan: CONTINUE NORCO, ZANAFLEX, ULTRAM (3) Hypomagnesemia Status: Acute Plan: MAG OX 400MG BID (4) RLS (restless legs syndrome) Status: Acute Plan: CONTINUE REQUIP (5) HTN (hypertension) Status: Chronic Qualifiers: Hypertension type: primary hypertension Qualified Code(s): I10 - Essential (primary) hypertension Plan: CONTINUE LOPRESSOR AND INCREASE ZESTRIL TO 20MG BID (6) Hypothyroidism Status: Chronic Qualifiers: Hypothyroidism type: acquired Qualified Code(s): E03.9 - Hypothyroidism, unspecified Plan: CONTINUE SYNTHROID
--- NOTE | 2022-09-26 12:09 | CT ---
HISTORYpyelonephritis, abd pain, prior right nephrectomySTUDYCT abdomen pelvis without IV contrastCOMPARISONCT 09/20/2022 and 05/08/2021TECHNIQUEMultiple axial images of the abdomen and pelvis were obtained from the lung bases to the pubic symphysis without the administration of IV contrast. Dose reduction techniques including Automated Exposure Control (AEC) and adjustment of mA and kV were utilized.FINDINGSThe visualized portions of the lung bases are unremarkable.The liver and spleen display no abnormalities.Gallbladder is contracted and not well evaluated. No biliary ductal dilation.No pancreatic abnormality is seen.The adrenal glands appear normal.Absent right kidney. Left perinephric streaky densities are mild, unchanged from prior study. There is a sub mm nonobstructing stone in the superior pole of the left kidney. There is mild left-sided ureterectasis proximally with more moderate distention of the distal left ureter. This could be a Hutch diverticulum, though. Similar appearance is seen on the right. No ureteral stone or bladder stone is seen. No bladder wall thickening is seen, but there is mild diffuse wall thickening in the mid left ureter that could be due to infection. Multiple phleboliths are seen in the pelvis.Mild left-sided colonic diverticula are seen without evidence of diverticulitis. Colon is mostly decompressed. There are a few right-sided diverticula. No small bowel dilation is seen. Normal appendix is seen.No prostate enlargement. Minimal fatty distention is seen of the inguinal rings. There is atrophy of the right anterior abdominal rectus musculature. There is atrophy of the distal left anterior abdominal rectus musculature near the insertion on the pubic bone. No anterior abdominal wall hernia formation is seen.Abdominal aorta is normal in size.There are shotty abdominal and pelvic lymph nodes that are probably reactive.No free intraperitoneal air or fluid is seen.L4 pars defects are seen with grade 1 anterolisthesis of L4 on L5. There is likely prominent bilateral neural foraminal stenosis.IMPRESSIONTiny sub mm nonobstructing left renal stone.Mild left-sided pyelonephritis cannot be excluded but perinephric hazy densities could just be from poor renal function. No abnormalities are seen in the renal parenchyma on this unenhanced exam. There could be left-sided ureteral infection. No suggestion of cystitis is seen.Persistent mild prominence of the distal ureters with absent right kidney. 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 This is a chronic appearance.Electronically signed by: Edvin Barrios (Sep 26, 2022 12:08:07)
[2022-09-26 13:09] VITALS: BP 157/82; PULSE 68; RESP 20; TEMP 98.2; O2SAT 97
== END 2022-09-26 14:20 | disposition home or self-care (01) | DRG 690 ==
LOC: ER 13:01 → MED/SURG 21:14
PROVIDERS: ADMIT Obstetrics & Gynecology Obstetrics; ATTEND Internal Medicine